=== PATIENT | female | born 1945 | race Caucasian/White ===

== ENCOUNTER 2017-02-26 11:12 | Emergency (ER) | payer OTHER ==
[2017-02-26 11:56] LABS: BASOPHIL COUNT 0.1 K/uL (0-0.1); EOSINOPHIL (%) 1.9 % (0-5); EOSINOPHIL COUNT 0.4 K/uL (0-0.3); HEMATOCRIT 27.9 % (36.0-46.0); IMMATURE GRANULOCYTE (%) 0.7 % (0.0-0.7); IMMATURE GRANULOCYTE COUNT 0.1 K/uL; INSTRUMENT ABS NEUTROPHIL CT 15.5 K/uL; LYMPHOCYTE COUNT 1.2 K/uL (1.0-2.8); MCHC 31.5 G/DL (30.0-36.0); MCV 98.2 FL (83-99); MEAN PLAT.VOLUME 9.9 uM^3 (9.5-12.4); MONOCYTE (%) 5.5 % (3-12); NEUTROPHIL (%) 84.9 % (45-76); NEUTROPHIL COUNT 15.5 K/uL (1.8-6.4); PLATELET COUNT 348 K/uL (156-360); RBC DIS.WIDTH-CV 13.2 % (11.8-14.6); RBC DIS.WIDTH-SD 47.4 % (39-53); RED BLOOD COUNT 2.84 M/uL (3.80-5.20); WHITE BLOOD COUNT 18.3 K/uL (4.1-10.2)
[2017-02-26 12:05] LABS: AMYLASE 39 IU/L (1-118); CHLORIDE 104 mEq/L (99-109); POTASSIUM 4.1 mEq/L (3.7-5.4); SODIUM 136 mEq/L (136-147)
[2017-02-26 12:07] LABS: GLUCOSE 175 mg/dL (70-99)
[2017-02-26 12:08] LABS: ANION GAP 9 MEQ/L (2-14)
[2017-02-26 12:10] LABS: SERUM ETHYL ALCOHOL < 10 mg/dL
[2017-02-26 12:11] LABS: GFR ESTIMATE (CALCULATED) 25 mL/min/
[2017-02-26 12:12] LABS: UREA NITROGEN (BUN) 28 mg/dL (9-23)
[2017-02-26 12:14] LABS: LIPASE 32 U/L (1.0-51.0)
[2017-02-26 12:19] LABS: INTER. NORMALIZED RATIO 3.2; PROTHROMBIN TIME 37.1 SEC (10.2-12.9)
[2017-02-26 12:22] LABS: PTT 35.8 SEC (25-37)
[2017-02-26 12:31] LABS: TROP-I INTERPRETATION NEGATIVE; TROPONIN-I < 0.01 ng/mL (0.0-0.30)
== END 2017-02-26 13:15 ==
LOC: TRA 11:12
PROVIDERS: Emergency Medicine; Surgery
DX: S30.1XXA Contusion of abdominal wall, initial encounter (principal); S22.31XA Fracture of one rib, right side, initial encounter for closed fracture; I46.9 Cardiac arrest, cause unspecified; M25.561 Pain in right knee; M25.562 Pain in left knee; V43.62XA Car passenger injured in collision with other type car in traffic accident, initial encounter; R53.1 Weakness; Z95.0 Presence of cardiac pacemaker; Z79.01 Long term (current) use of anticoagulants
CPT/HCPCS: 70450; 71260; 72125; 72129; 72132; 73560; 74177; 80048; 81003; 82150; 83690; 84484; 85025; 85610; 85730; 86850; 86900; 86901; 86920; 93005; 99281; 99285; G0480; J2405; P9016; P9017